=== PATIENT | female | born 1935 | race Caucasian/White ===

== ENCOUNTER 2016-06-08 06:52 | Emergency (ER) | payer OTHER, MEDICARE ==
[2016-06-08 07:10] VITALS: BMI 31.1
--- NOTE | 2016-06-08 07:47 | PDOC ---
History of Present Illness - General Chief Complaint: Urinary Problem Stated Complaint: URINARY PROBLEM Time Seen by Provider: 06/08/16 07:25 History Source: Patient Exam Limitations: No Limitations - History of Present Illness Travel History: No Initial Comments: 06/08/16 07:41 80 yo F with significant PMHx NIDDM, HTN, HLD, and arrythmia presents with 3 day history of burining urination. She describes increased frequency, dysuria and foul smell to urine. She has multiple uti's in past and very familiar with symptoms. Denies fevers, chills, nausea , vomiting, or hematuria. Denies CP, MARAVILLA, SOB, abd.pain or CVA. Timing/Duration: reports: getting worse Quality: reports: moderate Aggravating Factors: improves with: Voiding Past History - Travel Traveled outside of the country in the last 30 days: No - Past Medical History Allergies/Adverse Reactions: Allergies Allergy/AdvReac Type Severity Reaction Status Date / Time Sulfa (Sulfonamide Allergy Mild Swelling Verified 06/08/16 07:03 Antibiotics) Penicillins Allergy Verified 06/08/16 08:35 cefuroxime axetil AdvReac Severe Nausea Verified 06/08/16 07:03 [From Ceftin] Home Medications: Ambulatory Orders Levothyroxine [Synthroid -] 100 mcg PO DAILY 09/10/12 Metformin HCl [Glucophage -] 500 mg PO DAILY 09/10/12 Nateglinide [Starlix] 120 mg PO TID 09/10/12 Olmesartan Medoxomil [Benicar -] 20 mg PO DAILY 09/10/12 Rosuvastatin Calcium [Crestor] 10 mg PO HS 09/10/12 Amlodipine Besylate/Benazepril [Lotrel 10-20 mg Capsule] 1 cap PO DAILY Ciprofloxacin [Cipro -] 250 mg PO BID #10 tablet 06/08/16 Nebivolol HCl [Bystolic] 10 mg PO BID 06/08/16 Omeprazole 40 mg PO DAILY 06/08/16 Cardiac Disorders: Yes (ARRYTHMIA) Diabetes: Yes GI Disorders: Yes (GERD) HTN: Yes Hypercholesterolemia: Yes Suicide Attempt (Hx): No Thyroid Disease: Yes (Hypo) - Surgical History Abdominal Surgery: Yes Cholecystectomy: Yes - Immunization History Td Vaccination: Yes Immunization Up to Date: Yes - Psycho/Social/Smoking Cessation Hx Anxiety: No Suicidal Ideation: No Smoking Status: No Smoking History: Never smoked Years of Tobacco Use: 0 Have you smoked in the past 12 months: No Number of Cigarettes Smoked Daily: 0 Cigars Per Day: 0 Hx Alcohol Use: No Drug/Substance Use Hx: No Substance Use Type: None Review of Systems - Review of Systems Able to Perform ROS?: Yes Is the patient limited Italian proficient: No Constitutional: No: Chills, Diaphoresis, Fever, Weakness : Yes: Burning, Dysuria, Frequency. No: Flank Pain All Other Systems: Reviewed and Negative *Physical Exam - Vital Signs Last Vital Signs Temp Pulse Resp BP Pulse Ox 98.3 F 98 H 18 120/90 100 06/08/16 07:06 06/08/16 07:06 06/08/16 07:06 06/08/16 07:06 06/08/16 07:06 - Physical Exam General Appearance: Yes: Appropriately Dressed. No: Apparent Distress HEENT: positive: EOMI, FRANKIE Neck: positive: Supple Respiratory/Chest: positive: Lungs Clear, Normal Breath Sounds. negative: Respiratory Distress, Accessory Muscle Use Cardiovascular: positive: Regular Rhythm, Regular Rate, S1, S2, Murmur (2/6 SONIDO RSB). negative: Edema, JVD Gastrointestinal/Abdominal: positive: Normal Bowel Sounds, Flat, Soft Extremity: positive: Normal Inspection, Normal Range of Motion Integumentary: positive: Normal Color, Dry, Warm. negative: Cyanotic, Erythema , Jaundice Neurologic: positive: statistics manager II-XII NML intact, Fully Oriented, Alert, Normal Mood/ Affect ED Treatment Course - LABORATORY CBC & Chemistry Diagram: 06/08/16 08:06 06/08/16 08:06 Medical Decision Making - Medical Decision Making 06/08/16 07:53 A:80 yo F with significant PMHx NIDDM, HTN, HLD, and arrythmia presents with 3 day history of burining urination. Most likely UTI. P: * CBC, CMP, UA, and UC 06/08/16 09:27 * UA shows UTI will give Cipro(renal dosed) 250mg BID x 5 days * NO sepsis 06/08/16 09:50 * Spoke with Dr. Sykes and his office and informed that cultures were back and UTI sensitive to Ciprofloxacin. *DC/Admit/Observation/Transfer Diagnosis at time of Disposition: UTI (urinary tract infection) Qualifiers: Urinary tract infection type: site unspecified Hematuria presence: without hematuria Qualified Code(s): N39.0 - Urinary tract infection, site not specified - Discharge Dispostion Admit: No - Prescriptions Prescriptions: Ciprofloxacin [Cipro -] 250 mg PO BID #10 tablet - Referrals Referrals: Dinesh Sykes MD [Primary Care Provider] - - Patient Instructions Printed Discharge Instructions: DI for Urinary Tract Infection (UTI) Additional Instructions: Please take Cipro as directed for 5 days. Follow up with PCP in one week. ADA diet. Increase activity as tolerated. If pain worsens or develop fever/ chills please return to ED.
[2016-06-08] MEDS ORDERED: SODIUM CHLORIDE 1,000 ML IV SCH (08:15)
--- NOTE | 2016-06-08 08:17 | PDOC ---
Attending Attestation - Resident Resident Name: Tommie Waters - ED Attending Attestation I have performed the following: I have examined & evaluated the patient, The case was reviewed & discussed with the resident, I agree w/resident's findings & plan - HPI HPI: 06/08/16 08:14 80-year-old female with a past medical history of AODM, hypertension, hyperlipidemia, and GERD She states she gets frequent urinary tract infections, and her most recent UTI was 3 months ago, and she saw Dr. Sykes in the office She states it resolved with Cipro without any difficulty She states that she is ALLERGIC to multiple antibiotics including sulfa, Ceftin , and penicillin She states that she does tolerate Cipro without difficulty Patient states that on she started feeling a little weak, and then on Tuesday she developed dysuria urgency and frequency She denies any fevers or chills, she denies any flank pain She is complaining of some gassy abdominal feeling but has passed her bowels regularly She denies any nausea vomiting or diarrhea She denies any other complaints at this time, and the remainder of the review of systems is negative - Physicial Exam PE: 06/08/16 08:15 Physical exam Last Vital Signs Temp Pulse Resp BP Pulse Ox 98.3 F 98 H 18 120/90 100 06/08/16 07:06 06/08/16 07:06 06/08/16 07:06 06/08/16 07:06 06/08/16 07:06 GENERAL: The patient is awake, alert, and fully oriented, and in no apparent distress. HEAD: Normal with no signs of trauma. EYES: sclera anicteric, conjunctiva are normal. ENT: Moist mucous membranes. NECK: Normal range of motion, supple LUNGS: Breath sounds equal, clear to auscultation bilaterally. No wheezes, and no crackles. HEART: Regular rate and rhythm, normal S1 and S2 without murmur, rub or gallop. ABDOMEN: Soft, nontender, normoactive bowel sounds. No guarding, no rebound. No masses appreciated. No abdominal tenderness, no CVA/flank tenderness EXTREMITIES: Normal range of motion, no edema. No clubbing or cyanosis. No cords, erythema, or tenderness. NEUROLOGICAL: Cranial nerves II through XII grossly intact. Normal speech, normal gait. PSYCH: Normal mood, normal affect. SKIN: Warm, Dry, normal turgor, no rashes or lesions noted. - Medical Decision Making 06/08/16 08:16 80-year-old female, who does get recurrent UTIs, most recently 3 months ago, was treated easily with Cipro Presents with the onset /Tuesday UTI symptoms again, without fevers and chills, without flank pain, and without abdominal pain Patient ambulatory around the emergency department and to the bathroom, and drinking water without difficulty 06/08/16 09:27 Laboratory Results - last 24 hr 06/08/16 06/08/16 06/08/16 08:06 08:06 08:06 WBC 10.1 H D RBC 4.85 Hgb 14.0 Hct 42.1 MCV 86.8 MCHC 33.4 RDW 12.8 Plt Count 224 MPV 8.9 Neutrophils % 73.9 Lymphocytes % 16.2 D Monocytes % 6.5 Eosinophils % 2.2 D Basophils % 1.2 Sodium 141 Potassium 4.5 Chloride 107 Carbon Dioxide 22 Anion Gap 12 BUN 19 H Creatinine 1.1 H Creat Clearance w eGFR 47.67 Random Glucose 145 H Calcium 9.3 Total Bilirubin 0.6 AST 29 D ALT 29 Alkaline Phosphatase 71 Total Protein 7.3 Albumin 3.9 Urine Color Yellow Urine Appearance Slcloudy Urine pH 5.0 Ur Specific [place] 1.025 Urine Protein Negative Urine Glucose (UA) Negative Urine Ketones Negative Urine Blood Negative Urine Nitrite Positive Urine Bilirubin Negative Urine Urobilinogen Negative Ur Leukocyte Esterase 3+ H Urine RBC 3 Urine WBC 91 Ur Epithelial Cells Rare Urine Bacteria Many Urine Mucus Many Simple UTI, eGFR 47, no evidence of sepsis or systemic illness Multiple antibiotic ALLERGIES She states that her last UTI was treated effectively with Cipro will give Cipro 250 twice a day, and have her follow-up with her primary care physician will give first dose here IV-200 mg 06/08/16 09:50 * Spoke with Dr. Sykes and his office and informed that cultures were back from the other day,and UTI organism sensitive to Ciprofloxacin.
[2016-06-08 08:32] LABS: BASOPHIL 1.2 % (0-2.0); EOSINOPHIL 2.2 % (0-4.5); MCHC 33.4 g/dl (32.0-36.0); MEAN CELL VOLUME 86.8 fl (80-96); MEAN PLT VOLUME 8.9 fl (7.5-11.1); NEUTROPHILS 73.9 % (42.8-82.8); PLATELET COUNT 224 K/MM3 (134-434); RDW 12.8 % (11.6-15.6); WHITE BLOOD COUNT 10.1 K/mm3 (4.0-10.0)
[2016-06-08 08:55] LABS: URINE APPEARANCE SLCLOUDY; URINE BILIRUBIN NEGATIVE (NEGATIVE); URINE BLOOD NEGATIVE (NEGATIVE); URINE COLOR YELLOW; URINE GLUCOSE (UA) NEGATIVE (NEGATIVE); URINE KETONE NEGATIVE (NEGATIVE); URINE NITRITE POSITIVE (NEGATIVE); URINE PROTEIN NEGATIVE (NEGATIVE); URINE UROBILINOGEN NEGATIVE E.U./dl (0.2-1.0)
[2016-06-08 09:01] LABS: ALBUMIN 3.9 g/dl (3.4-5.0); CALCIUM 9.3 mg/dL (8.5-10.1); URINE LEUK ESTERASE 3+ (NEGATIVE)
[2016-06-08 09:03] LABS: URINE BACTERIA MANY /hpf (NONE SEEN); URINE MUCUS MANY; URINE RBC 3 /hpf (0-3); URINE WBC 91 /hpf (3-5)
[2016-06-08 09:04] LABS: BILIRUBIN,TOTAL 0.6 mg/dL (0.2-1.0); COCKROFT - GAULT 44.2255; CREATININE 1.1 mg/dL (0.55-1.02); TOT PROT 7.3 g/dl (6.4-8.2)
[2016-06-08] MEDS ORDERED: CIPROFLOXACIN 200 MG/D5W 100 ML IVPB ONE (09:38)
[2016-06-08 11:00] VITALS: BP 136/82; PULSE 75; TEMP 98.4
== END 2016-06-08 11:06 | disposition home or self-care (01) ==
LOC: JER 06:52
DX: N39.0 Urinary tract infection, site not specified (principal); I10 Essential (primary) hypertension; E11.9 Type 2 diabetes mellitus without complications; Z79.84 Long term (current) use of oral hypoglycemic drugs; E78.5 Hyperlipidemia, unspecified; E03.9 Hypothyroidism, unspecified
CPT/HCPCS: 36415; 80053; 81003; 81015; 85025; 87086; 87186; 96365; 99284-25

== ENCOUNTER 2016-07-05 19:36 | Emergency (ER) | payer OTHER, MEDICARE ==
[2016-07-05 19:42] VITALS: BP 147/75; PULSE 94; TEMP 98.2; BMI 31.8
[2016-07-05] MEDS ORDERED: ALBUTEROL SO4 2.5/IPRATROPIUM 0.5 INH SOL 3 ML VIAL.NEB. NEB STA (20:48)
--- NOTE | 2016-07-05 20:48 | PDOC ---
History of Present Illness - General History Source: Patient Exam Limitations: No Limitations - History of Present Illness Initial Comments: 07/05/16 20:57 The patient is a 80 year old female with significant past medical history of hypertension, hyperlipidemia, arrhythmia, diabetes, GERD, and hypothyroidism who presents to the ED for 1 day of dry cough and chest tightness. Patient reports she developed a sore throat 2 nights ago, when she decided to go to [facility] yesterday, where she had a throat culture done that was negative. Patient was told that she had a viral illness. She presents today with a dry cough and chest tightness that she developed less than 24 hours ago. Denies chest pain, palpitations or SOB. She also has complaints of generalized malaise. No sick contacts or recent travels. The patient denies fever, chills, diaphoresis, abdominal pain, nausea, vomiting , and diarrhea. Allergies: sulfa, cefuroxime axetil, penicillin Social History: No alcohol, tobacco, or drug use reported Past Surgical History: Cholecystectomy PCP: Dr. Dinesh Sykes <Sarah Forbes - Last Filed: 07/05/16 20:57> - General History Source: Patient <EddraJose - Last Filed: 07/05/16 22:09> - General Chief Complaint: Respiratory Stated Complaint: COLD SYMPTOMS Time Seen by Provider: 07/05/16 20:48 Past History <Sarah Forbes - Last Filed: 07/05/16 20:57> - Past Medical History Cardiac Disorders: Yes (ARRYTHMIA) Diabetes: Yes GI Disorders: Yes (GERD) HTN: Yes Hypercholesterolemia: Yes Suicide Attempt (Hx): No Thyroid Disease: Yes (Hypo) - Surgical History Abdominal Surgery: Yes Cholecystectomy: Yes - Immunization History Td Vaccination: Yes Immunization Up to Date: Yes - Psycho/Social/Smoking Cessation Hx Anxiety: No Suicidal Ideation: No Smoking Status: No Smoking History: Never smoked Years of Tobacco Use: 0 Have you smoked in the past 12 months: No Number of Cigarettes Smoked Daily: 0 Cigars Per Day: 0 Hx Alcohol Use: No Drug/Substance Use Hx: No Substance Use Type: None <Jose Gil - Last Filed: 07/05/16 22:09> - Past Medical History Allergies/Adverse Reactions: Allergies Allergy/AdvReac Type Severity Reaction Status Date / Time Sulfa (Sulfonamide Allergy Mild Swelling Verified 07/05/16 19:38 Antibiotics) Penicillins Allergy Verified 07/05/16 19:38 cefuroxime axetil AdvReac Severe Nausea Verified 07/05/16 19:38 [From Ceftin] Home Medications: Ambulatory Orders Levothyroxine [Synthroid -] 100 mcg PO DAILY 09/10/12 Metformin HCl [Glucophage -] 500 mg PO DAILY 09/10/12 Nateglinide [Starlix] 120 mg PO TID 09/10/12 Olmesartan Medoxomil [Benicar -] 20 mg PO DAILY 09/10/12 Rosuvastatin Calcium [Crestor] 10 mg PO HS 09/10/12 Amlodipine Besylate/Benazepril [Lotrel 10-20 mg Capsule] 1 cap PO DAILY Nebivolol HCl [Bystolic] 10 mg PO BID 06/08/16 Omeprazole 40 mg PO DAILY 06/08/16 Albuterol Sulfate Inhaler - [Ventolin HFA Inhaler -] 2 inh IH Q6H #1 inh Review of Systems - Review of Systems Able to Perform ROS?: Yes Comments:: 07/05/16 20:57 CONSTITUTIONAL: +generalized malaise Absent: fever, no chills, no fatigue EYES: Absent: visual changes ENT: +sore throat Absent: ear pain CARDIOVASCULAR: Absent: chest pain, no palpitations RESPIRATORY: +dry cough, chest tightness Absent: no SOB GI: Absent: abdominal pain, no nausea, no vomiting, no constipation, no diarrhea GENITOURINARY: Absent: dysuria, no frequency, no hematuria MUSCULOSKELETAL: Absent: back pain, no arthralgia, no myalgia SKIN: Absent: rash NEURO: Absent: headache <Bharrat,Sarah - Last Filed: 07/05/16 20:57> *Physical Exam - Vital Signs Last Vital Signs Temp Pulse Resp BP Pulse Ox 98.2 F 94 H 18 147/75 97 07/05/16 19:38 07/05/16 19:38 07/05/16 19:38 07/05/16 19:38 07/05/16 19:38 - Physical Exam Comments: 07/05/16 20:57 GENERAL: Well-appearing, well-nourished. No apparent distress. HEENT: Normocephalic, atraumatic. PERRL, EOM intact. Oropharynx is clear. CARDIOVASCULAR: Normal S1, S2. Regular rate and rhythm. PULMONARY: No respiratory distress. Diminished breath sounds bilaterally. No wheezing, rales, or rhonchi. No conversational dyspnea. No retractions. ABDOMEN: Soft, non-distended, non-tender. EXTREMITIES: Normal ROM in all four extremities. No gross deformities. SKIN: Warm, dry. No rash NEUROLOGICAL: No focal neurological deficits. <Sarah Forbes - Last Filed: 07/05/16 20:57> - Vital Signs Last Vital Signs Temp Pulse Resp BP Pulse Ox 98.2 F 94 H 18 147/75 97 07/05/16 19:38 07/05/16 19:38 07/05/16 19:38 07/05/16 19:38 07/05/16 19:38 <Jose Gil - Last Filed: 07/05/16 22:09> Medical Decision Making - Medical Decision Making 07/05/16 22:08 Dr. Gil: The scribe's documentation has been prepared under my direction and personally reviewed by me in its entirery. I confirm that the note above accurately reflects all work, treatment, procedures, and medical decision making performed by me. Patient feels better after DuoNeb. chest x-ray shows no infiltrate. Patient to follow-up with her primary care doc. Albuterol inhaler written <Jose Gil - Last Filed: 07/05/16 22:09> *DC/Admit/Observation/Transfer - Attestations Scribe Attestion: 07/05/16 20:58 Documentation prepared by Sarah Forbes, acting as medical social consultant for Jose Gil MD/DO. <Sarah Forbes - Last Filed: 07/05/16 20:57> - Discharge Dispostion Admit: No <Jose Gil - Last Filed: 07/05/16 22:09> Diagnosis at time of Disposition: Bronchospasm, Cough - Discharge Dispostion Disposition: HOME Condition at time of disposition: Stable - Referrals Referrals: Dinesh Sykes MD [Primary Care Provider] - - Patient Instructions Printed Discharge Instructions: DI for Cough -- Adult Additional Instructions: Purchase Claritin over the counter and use one tab daily, until your symptoms resolve. Follow up with with Dr. Sykes if things don't improve.
[2016-07-05] MEDS ORDERED: ALBUTEROL SO4 2.5/IPRATROPIUM 0.5 INH SOL 3 ML VIAL.NEB. NEB ONE ×2 (21:03→21:12)
== END 2016-07-05 22:14 | disposition home or self-care (01) ==
LOC: JER 19:36
PROC: 3E0F7GC Introduction of Other Therapeutic Substance into Respiratory Tract, Via Natural or Artificial Opening (ICD-10-PCS; principal; 2016-07-05)
DX: J98.01 Acute bronchospasm (principal); R05 Cough; I10 Essential (primary) hypertension; E78.00 Pure hypercholesterolemia, unspecified; E03.9 Hypothyroidism, unspecified; K21.9 Gastro-esophageal reflux disease without esophagitis; E11.9 Type 2 diabetes mellitus without complications; I49.9 Cardiac arrhythmia, unspecified
CPT/HCPCS: 71020-TC; 99281-25

== ENCOUNTER 2016-07-06 04:04 | Emergency (ER) | payer OTHER, MEDICARE ==
[2016-07-06] MEDS ORDERED: SODIUM CHLORIDE 1,000 ML IV STA (04:26)
--- NOTE | 2016-07-06 04:26 | PDOC ---
History of Present Illness - General History Source: Patient Exam Limitations: No Limitations - History of Present Illness Initial Comments: 07/06/16 04:34 The patient is a 80 year old female with significant past medical history of hypertension, hyperlipidemia, arrhythmia, diabetes, GERD, and hypothyroidism who presents to the ED for generalized weakness. Patient was seen earlier in the ER for coughing, sore throat, and chest tightness. She was treated and discharged. Patient returns for worsening symptoms. States she felt weak when she went to use the bathroom. She noted to have a low grade temp at home. Took tylenol with minimal improvement. She also has complaints of sore throat. States her chest tightness has improved and her cough appears to have improved. Patient reports h/o of UTIs. She currently does not have any urinary complaints. The patient denies chills, diaphoresis, SOB, chest pain, and palpitations. The patient denies abdominal pain, nausea, vomiting, and diarrhea. The patient denies dysuria, hematuria, urgency, and frequency. Allergies: sulfa, cefuroxime axetil, penicillin Social History: No alcohol, tobacco, or drug use reported Past Surgical History: Cholecystectomy PCP: Dr. Dinesh Sykes <Sarah Forbes - Last Filed: 07/06/16 04:34> - General History Source: Patient <Jose Gil - Last Filed: 07/06/16 06:52> - General Stated Complaint: REVISIT-COLD SYMPTOMS, WEAKNESS Time Seen by Provider: 07/06/16 04:23 Past History <Sarah Forbes - Last Filed: 07/06/16 04:34> - Past Medical History Cardiac Disorders: Yes (ARRYTHMIA) Diabetes: Yes GI Disorders: Yes (GERD) HTN: Yes Hypercholesterolemia: Yes Suicide Attempt (Hx): No Thyroid Disease: Yes (Hypo) - Surgical History Abdominal Surgery: Yes Cholecystectomy: Yes - Immunization History Td Vaccination: Yes Immunization Up to Date: Yes - Psycho/Social/Smoking Cessation Hx Anxiety: No Suicidal Ideation: No Smoking Status: No Smoking History: Never smoked Years of Tobacco Use: 0 Have you smoked in the past 12 months: No Number of Cigarettes Smoked Daily: 0 Cigars Per Day: 0 Hx Alcohol Use: No Drug/Substance Use Hx: No Substance Use Type: None <Jose Gil - Last Filed: 07/06/16 06:52> - Past Medical History Allergies/Adverse Reactions: Allergies Allergy/AdvReac Type Severity Reaction Status Date / Time Sulfa (Sulfonamide Allergy Mild Swelling Verified 07/06/16 04:46 Antibiotics) Penicillins Allergy Verified 07/06/16 04:46 cefuroxime axetil AdvReac Severe Nausea Verified 07/06/16 04:46 [From Ceftin] Home Medications: Ambulatory Orders Levothyroxine [Synthroid -] 100 mcg PO DAILY 09/10/12 Metformin HCl [Glucophage -] 500 mg PO DAILY 09/10/12 Nateglinide [Starlix] 120 mg PO TID 09/10/12 Olmesartan Medoxomil [Benicar -] 20 mg PO DAILY 09/10/12 Rosuvastatin Calcium [Crestor] 10 mg PO HS 09/10/12 Amlodipine Besylate/Benazepril [Lotrel 10-20 mg Capsule] 1 cap PO DAILY Nebivolol HCl [Bystolic] 10 mg PO BID 06/08/16 Omeprazole 40 mg PO DAILY 06/08/16 Albuterol Sulfate Inhaler - [Ventolin HFA Inhaler -] 2 inh IH Q6H #1 inh Acetaminophen [Tylenol -] 1,000 mg PO Q6H 07/06/16 Levofloxacin [Levaquin -] 500 mg PO DAILY #7 tablet 07/06/16 Review of Systems - Review of Systems Able to Perform ROS?: Yes Comments:: 07/06/16 04:34 CONSTITUTIONAL: +fever, generalized weakness Absent: no chills, no fatigue EYES: Absent: visual changes ENT: +sore throat Absent: ear pain CARDIOVASCULAR: Absent: chest pain, no palpitations RESPIRATORY: Absent: cough, no SOB GI: Absent: abdominal pain, no nausea, no vomiting, no constipation, no diarrhea GENITOURINARY: Absent: dysuria, no frequency, no hematuria MUSCULOSKELETAL: Absent: back pain, no arthralgia, no myalgia SKIN: Absent: rash NEURO: Absent: headache <ZahraarrJim syta - Last Filed: 07/06/16 04:34> *Physical Exam - Physical Exam Comments: 07/06/16 04:34 GENERAL: Well-appearing, well-nourished. No apparent distress. HEENT: Normocephalic, atraumatic. PERRL, EOM intact. CARDIOVASCULAR: Normal S1, S2. Regular rate and rhythm. PULMONARY: Clear to auscultation bilaterally. ABDOMEN: Soft, non-distended, non-tender. EXTREMITIES: Normal ROM in all four extremities. No gross deformities. SKIN: Warm, dry. No rash NEUROLOGICAL: No focal neurological deficits. <Sarah Forbes - Last Filed: 07/06/16 04:34> ED Treatment Course - LABORATORY CBC & Chemistry Diagram: 07/06/16 05:00 07/06/16 05:00 <Jose Gil - Last Filed: 07/06/16 06:52> *DC/Admit/Observation/Transfer - Attestations Scribe Attestion: 07/06/16 04:35 Documentation prepared by Sarah Forbes, acting as medical coder for Jose Gil MD/. <Sarah Forbes - Last Filed: 07/06/16 04:34> - Discharge Dispostion Admit: No <Jose Gil - Last Filed: 07/06/16 06:52> Diagnosis at time of Disposition: UTI (urinary tract infection) - Discharge Dispostion Disposition: HOME Condition at time of disposition: Stable - Prescriptions Prescriptions: Levofloxacin [Levaquin -] 500 mg PO DAILY #7 tablet - Referrals Referrals: Dinesh Sykes MD [Primary Care Provider] - - Patient Instructions Printed Discharge Instructions: DI for Urinary Tract Infection (UTI)
[2016-07-06 04:45] VITALS: BMI 32.1
[2016-07-06 05:13] LABS: BASOPHIL 1.1 % (0-2.0); EOSINOPHIL 3.7 % (0-4.5); MCH 28.8 pg (25.7-33.7); MCHC 33.6 g/dl (32.0-36.0); MEAN CELL VOLUME 85.6 fl (80-96); MEAN PLT VOLUME 8.7 fl (7.5-11.1); NEUTROPHILS 73.7 % (42.8-82.8); PLATELET COUNT 194 K/MM3 (134-434); WHITE BLOOD COUNT 8.3 K/mm3 (4.0-10.0)
[2016-07-06 05:29] LABS: INR 1.17 (0.82-1.09); PROTHROMBIN TIME (PATIENT) 12.9 SEC (9.98-11.88)
[2016-07-06] MEDS ORDERED: ALBUTEROL SO4 2.5/IPRATROPIUM 0.5 INH SOL 3 ML VIAL.NEB. NEB STA (05:36)
[2016-07-06 05:37] LABS: ALBUMIN 3.7 g/dl (3.4-5.0); BILIRUBIN,TOTAL 0.5 mg/dL (0.2-1.0); CALCIUM 8.9 mg/dL (8.5-10.1); COCKROFT - GAULT 45.662; CREATININE 1.1 mg/dL (0.55-1.02); TOT PROT 6.8 g/dl (6.4-8.2)
[2016-07-06 06:40] LABS: URINE APPEARANCE CLEAR; URINE BILIRUBIN NEGATIVE (NEGATIVE); URINE BLOOD NEGATIVE (NEGATIVE); URINE COLOR LTYELLOW; URINE GLUCOSE (UA) NEGATIVE (NEGATIVE); URINE KETONE NEGATIVE (NEGATIVE); URINE NITRITE POSITIVE (NEGATIVE); URINE PROTEIN NEGATIVE (NEGATIVE); URINE UROBILINOGEN NEGATIVE E.U./dl (0.2-1.0)
[2016-07-06 06:47] LABS: URINE LEUK ESTERASE TRACE (NEGATIVE)
[2016-07-06] MEDS ORDERED: LEVOFLOXACIN 500 MG TABLET (FP) PO ONE (06:50)
[2016-07-06 06:53] LABS: URINE BACTERIA RARE /hpf (NONE SEEN); URINE HYALINE CAST 4 /lpf; URINE MUCUS RARE; URINE WBC 3 /hpf (3-5)
[2016-07-06] MEDS ORDERED: LEVOFLOXACIN 500 MG TABLET (FP) ONE (07:01)
[2016-07-06 07:07] VITALS: BP 150/84; PULSE 94; TEMP 98.8
== END 2016-07-06 07:08 | disposition home or self-care (01) ==
LOC: JER 04:04
PROC: 3E0F7GC Introduction of Other Therapeutic Substance into Respiratory Tract, Via Natural or Artificial Opening (ICD-10-PCS; principal; 2016-07-06)
PROC: 3E0337Z Introduction of Electrolytic and Water Balance Substance into Peripheral Vein, Percutaneous Approach (ICD-10-PCS; 2016-07-06)
DX: N39.0 Urinary tract infection, site not specified (principal); E11.9 Type 2 diabetes mellitus without complications; E03.9 Hypothyroidism, unspecified; K21.9 Gastro-esophageal reflux disease without esophagitis; I49.9 Cardiac arrhythmia, unspecified; E78.00 Pure hypercholesterolemia, unspecified; I10 Essential (primary) hypertension
CPT/HCPCS: 36415; 80053; 81003; 81015; 85025; 85610; 87040; 87086; 87186; 94640; 96360; 99282-25

== ENCOUNTER 2017-06-07 06:18 | Emergency (ER) | payer OTHER, MEDICARE ==
[2017-06-07 06:37] VITALS: BP 168/79; PULSE 74; TEMP 99.4; BMI 33.9
[2017-06-07 07:08] LABS: URINE APPEARANCE CLOUDY; URINE BILIRUBIN NEGATIVE (<2.0 mg/dL); URINE BLOOD 2+ (NEGATIVE); URINE COLOR YELLOW; URINE GLUCOSE (UA) NEGATIVE (NEGATIVE); URINE KETONE NEGATIVE (NEGATIVE); URINE NITRITE POSITIVE (NEGATIVE); URINE UROBILINOGEN NEGATIVE mg/dL (0.2-1.0)
[2017-06-07 07:19] LABS: URINE LEUK ESTERASE 3+ (NEGATIVE); URINE PROTEIN 1+ (NEGATIVE)
[2017-06-07 07:21] LABS: EPI CELLS RARE /HPF (FEW); URINE BACTERIA MANY /hpf (NONE SEEN); URINE MUCUS RARE; YEAST MANY
[2017-06-07] MEDS ORDERED: ACETAMINOPHEN 500 MG TABLET (FP) PO ONE (07:48)
[2017-06-07] MEDS ORDERED: FLUCONAZOLE 50 MG TABLET PO ONE (07:50)
--- NOTE | 2017-06-07 07:51 | PDOC ---
History of Present Illness <Laurent Dalton - Last Filed: 06/07/17 08:16> - General History Source: Patient Exam Limitations: No Limitations - History of Present Illness Initial Comments: 06/07/17 08:39 The patient is an 81 year old female with past medical history of hypertension, NIDDM, and recurrent UTI who presents to the ED with 1 month of dysuria. The patient complains of a burning pressure every time she urinates as well as a suprapubic pain that radiates to her sacrum. She states her symptoms are typical of her past UTIs. Yesterday she began to experience chills and has felt more lethargic the past few days. She denies any nausea, vomiting, diarrhea, cough, SOB, frequency, urgency, or hematuria. Allergies: Sulfa Surgeries: Cholecystectomy, hemorrhoid surgery PCP: Dr. Sykes <Teresita Ugalde - Last Filed: 06/07/17 08:40> - General Chief Complaint: Urinary Problem Stated Complaint: URINARY PROBLEM Time Seen by Provider: 06/07/17 07:02 Past History - Past Medical History Cardiac Disorders: Yes (ARRYTHMIA) Diabetes: Yes GI Disorders: Yes (GERD) HTN: Yes Hypercholesterolemia: Yes Thyroid Disease: Yes (Hypo) - Surgical History Abdominal Surgery: Yes Cholecystectomy: Yes - Immunization History Td Vaccination: Yes Immunization Up to Date: Yes - Suicide/Smoking/Psychosocial Hx Smoking Status: No Smoking History: Never smoked Years of Tobacco Use: 0 Have you smoked in the past 12 months: No Number of Cigarettes Smoked Daily: 0 Cigars Per Day: 0 Information on smoking cessation initiated: No Hx Alcohol Use: No Drug/Substance Use Hx: No Substance Use Type: None <Laurent Dalton - Last Filed: 06/07/17 08:16> <Teresita Ugalde - Last Filed: 06/07/17 08:40> - Past Medical History Allergies/Adverse Reactions: Allergies Allergy/AdvReac Type Severity Reaction Status Date / Time Sulfa (Sulfonamide Allergy Mild Swelling Verified 06/07/17 06:36 Antibiotics) Penicillins Allergy Verified 06/07/17 06:36 cefuroxime axetil AdvReac Severe Nausea Verified 06/07/17 06:36 [From Ceftin] Home Medications: Ambulatory Orders Levothyroxine [Synthroid -] 100 mcg PO DAILY 09/10/12 Nateglinide [Starlix] 120 mg PO TID 09/10/12 Olmesartan Medoxomil [Benicar -] 20 mg PO DAILY 09/10/12 Rosuvastatin Calcium [Crestor] 10 mg PO HS 09/10/12 metFORMIN HCL [Glucophage -] 500 mg PO DAILY 09/10/12 Amlodipine Besylate/Benazepril [Lotrel 10-20 mg Capsule] 1 cap PO DAILY Nebivolol HCl [Bystolic] 10 mg PO BID 06/08/16 Omeprazole 40 mg PO DAILY 06/08/16 Albuterol Sulfate Inhaler - [Ventolin HFA Inhaler -] 2 inh IH Q6H #1 inh Acetaminophen [Tylenol .Extra-Strength -] 1,000 mg PO Q6H 07/06/16 levoFLOXacin [Levaquin -] 500 mg PO DAILY #7 tablet 07/06/16 Nitrofurantoin Macrocrystal [Macrodantin -] 100 mg PO BID #14 capsule 06/07/17 Review of Systems - Review of Systems Constitutional: No: Chills, Fever Respiratory: No: Cough, Shortness of Breath Cardiac (ROS): No: Chest Pain : Yes: Burning, Dysuria, Frequency. No: Flank Pain, Hematuria All Other Systems: Reviewed and Negative <Laurent Dalton - Last Filed: 06/07/17 08:16> *Physical Exam - Vital Signs Last Vital Signs Temp Pulse Resp BP Pulse Ox 99.4 F 74 18 168/79 98 06/07/17 06:36 06/07/17 06:36 06/07/17 06:36 06/07/17 06:36 06/07/17 06:36 <Laurent Dalton - Last Filed: 06/07/17 08:16> - Vital Signs Last Vital Signs Temp Pulse Resp BP Pulse Ox 99.4 F 74 18 168/79 98 06/07/17 06:36 06/07/17 06:36 06/07/17 06:36 06/07/17 06:36 06/07/17 06:36 - Physical Exam Comments: 06/07/17 08:40 GENERAL: The patient is awake, alert, and fully oriented, in no acute distress. HEAD: Normal with no signs of trauma. EYES: Pupils equal, round and reactive to light, extraocular movements intact, sclera anicteric, conjunctiva clear with no pallor. ENT: Ears normal, nares patent, oropharynx clear without exudates. Moist mucous membranes. NECK: Normal range of motion, supple without lymphadenopathy, JVD, or masses. LUNGS: Breath sounds equal, clear to auscultation bilaterally. No wheeze/ crackles. HEART: Regular rate and rhythm, normal S1 and S2 without murmur or rub. ABDOMEN: Soft/nontender/nondistended. BS wnl. No guarding or rebound. No palpable masses. No hepatosplenomegaly. EXTREMITIES: Normal range of motion, no edema. No clubbing or cyanosis. No cords, erythema, or tenderness. NEUROLOGICAL: Cranial nerves II through XII grossly intact. Normal speech, normal gait. PSYCH: Normal mood, normal affect. SKIN: Warm, Dry, normal turgor, no rashes or lesions noted. <Teresita Ugalde - Last Filed: 06/07/17 08:40> ED Treatment Course - ADDITIONAL ORDERS Additional order review: Laboratory Results 06/07/17 06:42 Urine Color Yellow Urine Appearance Cloudy Urine pH 6.0 Ur Specific [place] 1.015 Urine Protein 1+ H Urine Glucose (UA) Negative Urine Ketones Negative Urine Blood 2+ H Urine Nitrite Positive Urine Bilirubin Negative Urine Urobilinogen Negative Ur Leukocyte Esterase 3+ H D Urine WBC (Auto) 451 Urine RBC (Auto) 75 Ur Epithelial Cells Rare Urine Bacteria Many Urine Mucus Rare Urine Yeast Many <Laurent Dalton - Last Filed: 06/07/17 08:16> - ADDITIONAL ORDERS Additional order review: Laboratory Results 06/07/17 06:42 Urine Color Yellow Urine Appearance Cloudy Urine pH 6.0 Ur Specific [place] 1.015 Urine Protein 1+ H Urine Glucose (UA) Negative Urine Ketones Negative Urine Blood 2+ H Urine Nitrite Positive Urine Bilirubin Negative Urine Urobilinogen Negative Ur Leukocyte Esterase 3+ H D Urine WBC (Auto) 451 Urine RBC (Auto) 75 Ur Epithelial Cells Rare Urine Bacteria Many Urine Mucus Rare Urine Yeast Many - Medications Given in the ED: ED Medications Discontinued Medications Generic Name Dose Route Start Last Admin Trade Name Freq PRN Reason Stop Dose Admin Acetaminophen 1,000 mg 06/07/17 07:48 06/07/17 08:15 Tylenol - PO 06/07/17 07:49 1,000 mg ONCE ONE Administration Fluconazole 150 mg 06/07/17 07:50 06/07/17 08:15 Diflucan - PO 06/07/17 07:51 150 mg ONCE ONE Administration <Teresita Ugalde - Last Filed: 06/07/17 08:40> Medical Decision Making - Medical Decision Making 06/07/17 08:24 A portion of this note was documented by scribe services under my direction. I have reviewed the details of the note, within reason, and agree with the documentation with the following case summary and management plan written by me. 81y/o F with h/o frequent UTI p/w 1 month dysuria/frequency and suprapubic discomfort, also with vaginal burning but no bleeding/discharge. identical to past UTI sxs, arranged appt with Dr. Sykes but not scheduled until 1-2 weeks from now. no incontinence/retention, no flank pain. no f/c/n/v. temp 99 very well appearing and high functioning elderly female regular and normal rate abd soft/nt/nd. no cvat. 81y/o F with UTI sxs and no signs/sxs of bacteremia/sepsis or other complication. Also likely superimposed vaginal candidiasis. UA with elevated nitrites/leks/yeast urine cx sent treated with macrobid and diflucan here will f/u with On[facility] - understands return criteria. <Laurent Dalton - Last Filed: 06/07/17 08:16> *DC/Admit/Observation/Transfer <Laurent Dalton - Last Filed: 06/07/17 08:16> - Attestations Scribe Attestion: 06/07/17 08:4 Documentation prepared by Teresita Ugalde, acting as medical office technician for Laurent Dalton MD. <Teresita Ugalde - Last Filed: 06/07/17 08:40> Diagnosis at time of Disposition: Vaginal candidiasis UTI (urinary tract infection) Qualifiers: Urinary tract infection type: acute cystitis Hematuria presence: without hematuria Qualified Code(s): N30.00 - Acute cystitis without hematuria - Discharge Dispostion Disposition: HOME Condition at time of disposition: Stable - Prescriptions Prescriptions: Nitrofurantoin Macrocrystal [Macrodantin -] 100 mg PO BID #14 capsule - Referrals Referrals: Dinesh Sykes MD [Primary Care Provider] - - Patient Instructions Printed Discharge Instructions: DI for Vaginal Yeast Infection, DI for Urinary Tract Infection (UTI) Additional Instructions: Activity as tolerated. Stay hydrated. A urine test shows evidence of a urinary tract infection, as suspected. Take Macrobid as prescribed for one week. You were given a dose of Diflucan in the emergency department to treat a vaginal yeast infection. No further treatment should be necessary. Continue your medications as previously prescribed by your physician. You should follow up with Dr. Sykes as soon as possible regarding today's emergency department visit. Return to the emergency department for any new or concerning symptoms, particularly persistent burning or difficulty urinating, fevers or chills or weakness, abdominal pain. - Post Discharge Activity
[2017-06-07] MEDS ORDERED: NITROFURANTOIN MACROCRYSTAL 50 MG CAPSULE (FP) PO SCH (08:00)
[2017-06-07] MEDS ORDERED: FLUCONAZOLE 100 MG TABLET (UD) ONE (08:06)
[2017-06-07] MEDS ORDERED: ACETAMINOPHEN 325 MG TABLET (FP) ONE (08:06)
[2017-06-07] MEDS ORDERED: NITROFURANTOIN MACROCRYSTAL 50 MG CAPSULE (FP) ONE (08:06)
--- NOTE | 2017-06-09 07:41 | PDOC ---
Patient Follow-up (Call Back) - Post ED Follow - Up Condition at time of discharge: Stable Disposition at time of original discharge: HOME Reason for Call Back: Abnwl. Microbiology (Patient's urine culture preliminary report shows organism 1 with lactose fermenting negative bacilli. Organism 2 with group D strep or enterococcus. Patient currently on Macrobid. We will await final report.)
== END 2017-06-07 08:39 | disposition home or self-care (01) ==
LOC: JER 06:18
DX: N30.00 Acute cystitis without hematuria (principal); B37.3 Candidiasis of vulva and vagina; I10 Essential (primary) hypertension; E11.9 Type 2 diabetes mellitus without complications; Z79.84 Long term (current) use of oral hypoglycemic drugs; E03.9 Hypothyroidism, unspecified; E78.00 Pure hypercholesterolemia, unspecified; K21.9 Gastro-esophageal reflux disease without esophagitis; Z86.79 Personal history of other diseases of the circulatory system
CPT/HCPCS: 81003; 81015; 87086; 87186; 99281-25

== ENCOUNTER 2017-10-29 11:03 | Emergency (ER) | payer OTHER, MEDICARE ==
[2017-10-29 11:17] VITALS: BP 206/89; PULSE 80; TEMP 97; BMI 33.9
--- NOTE | 2017-10-29 11:26 | PDOC ---
History of Present Illness - General Chief Complaint: Injury Stated Complaint: FALL, INJURY Time Seen by Provider: 10/29/17 11:20 - History of Present Illness Initial Comments: 10/29/17 11:25 A 1-year-old female without comorbidities he takes daily aspirin presents for evaluation after mechanical fall. She states she hit her head on the mailbox on her way down she is unsure of her current tetanus status. She has no loss of consciousness, nausea vomiting or headache. No post injury visual changes. She was here because she wanted to be checked. She is unsure of her current tetanus status. Past History - Past Medical History Allergies/Adverse Reactions: Allergies Allergy/AdvReac Type Severity Reaction Status Date / Time Sulfa (Sulfonamide Allergy Mild Swelling Verified 10/29/17 11:18 Antibiotics) Penicillins Allergy Verified 10/29/17 11:18 cefuroxime axetil AdvReac Severe Nausea Verified 10/29/17 11:18 [From Ceftin] Home Medications: Ambulatory Orders Levothyroxine [Synthroid -] 100 mcg PO DAILY 09/10/12 Nateglinide [Starlix] 120 mg PO TID 09/10/12 Olmesartan Medoxomil [Benicar -] 20 mg PO DAILY 09/10/12 Rosuvastatin Calcium [Crestor] 10 mg PO HS 09/10/12 metFORMIN HCL [Glucophage -] 500 mg PO DAILY 09/10/12 Amlodipine Besylate/Benazepril [Lotrel 10-20 mg Capsule] 1 cap PO DAILY Nebivolol HCl [Bystolic] 10 mg PO BID 06/08/16 Omeprazole 40 mg PO DAILY 06/08/16 Albuterol Sulfate Inhaler - [Ventolin HFA Inhaler -] 2 inh IH Q6H #1 inh Acetaminophen [Tylenol .Extra-Strength -] 1,000 mg PO Q6H 07/06/16 levoFLOXacin [Levaquin -] 500 mg PO DAILY #7 tablet 07/06/16 Nitrofurantoin Macrocrystal [Macrodantin -] 100 mg PO BID #14 capsule 06/07/17 Amoxicillin - [Amoxicillin 500mg Capsule -] 500 mg PO BID #14 capsule 06/11/17 Cardiac Disorders: Yes (ARRYTHMIA) COPD: No Diabetes: Yes GI Disorders: Yes (GERD) HTN: Yes Hypercholesterolemia: Yes Thyroid Disease: Yes (Hypo) - Surgical History Abdominal Surgery: Yes (HEMMROIDS) Cholecystectomy: Yes - Immunization History Td Vaccination: Yes Immunization Up to Date: Yes - Suicide/Smoking/Psychosocial Hx Smoking Status: No Smoking History: Never smoked Years of Tobacco Use: 0 Have you smoked in the past 12 months: No Number of Cigarettes Smoked Daily: 0 Cigars Per Day: 0 Hx Alcohol Use: No Drug/Substance Use Hx: No Substance Use Type: None Review of Systems - Review of Systems All Other Systems: Reviewed and Negative *Physical Exam - Vital Signs Last Vital Signs Temp Pulse Resp BP Pulse Ox 97 F L 80 18 206/89 97 10/29/17 11:13 10/29/17 11:13 10/29/17 11:13 10/29/17 11:13 10/29/17 11:13 - Physical Exam Comments: 10/29/17 12:27 HEAD: NC/AT EYES: Conjuntiva clear, PERRL, EOMI Ears: Canals and TM's normal NOSE: No d/c THROAT: Moist mucous membrances, oral pharanx clear, uvula midline NECK: Supple without adenopathy CARDIAC: S1 S2 LUNGS: CTA Full and Equal breath sounds ABDOMEN: Soft NT ND MS: Full ROM in all joints without edema NEUROLOGIC: No gross sensory or motor deficits, NVID, Negative [place] SKIN: Normal color and temperature no lesions or rashes ED Treatment Course - RADIOLOGY Radiology Studies Ordered: Category Date Time Status HEAD CT WITHOUT CONTRAST [CT] Stat CT Scan 10/29/17 11:20 Ordered Medical Decision Making - Medical Decision Making Tetanus is up-to-date his were reviewed 10/29/17 11:28 10/29/17 12:28 Negative CAT scan no symptoms and this closed head injury. Follow-up with her primary care physician *DC/Admit/Observation/Transfer Diagnosis at time of Disposition: Closed head injury - Discharge Dispostion Disposition: HOME Condition at time of disposition: Stable Decision to Admit order: No - Referrals - Patient Instructions Printed Discharge Instructions: DI for Closed Head Injury Additional Instructions: Follow-up with your primary care physician in one to 2 days return to the emergency room should he develop any headache nausea vomiting visual changes or any other symptoms. - Post Discharge Activity
== END 2017-10-29 12:32 | disposition home or self-care (01) ==
LOC: JERFT 11:03
DX: S09.8XXA Other specified injuries of head, initial encounter (principal); W01.198A Fall on same level from slipping, tripping and stumbling with subsequent striking against other object, initial encounter; Y93.89 Activity, other specified; Y92.018 Other place in single-family (private) house as the place of occurrence of the external cause; Z79.82 Long term (current) use of aspirin; I10 Essential (primary) hypertension; E11.9 Type 2 diabetes mellitus without complications; Z79.84 Long term (current) use of oral hypoglycemic drugs; E78.00 Pure hypercholesterolemia, unspecified; E03.9 Hypothyroidism, unspecified; Z88.0 Allergy status to penicillin; Z88.2 Allergy status to sulfonamides
CPT/HCPCS: 70450-TC; 99281-25

== ENCOUNTER 2017-12-30 21:19 | Emergency (ER) | payer OTHER, MEDICARE ==
[2017-12-30] MEDS ORDERED: diphenhydrAMINE HCL 25 MG CAPSULE (FP) PO ONE ×2 (21:21→21:57)
[2017-12-30 21:23] VITALS: TEMP 98.2; BMI 33.9
--- NOTE | 2017-12-30 21:28 | PDOC ---
Rapid Medical Evaluation Chief Complaint: Bite Time Seen by Provider: 12/30/17 21:20 Medical Evaluation: Allergies Allergy/AdvReac Type Severity Reaction Status Date / Time Sulfa (Sulfonamide Allergy Mild Swelling Verified 10/29/17 11:18 Antibiotics) Penicillins Allergy Verified 10/29/17 11:18 cefuroxime axetil AdvReac Severe Nausea Verified 10/29/17 11:18 [From Ceftin] 12/30/17 21:21 82 year old female s/p bee sting 1/2 hour ago now with hives to body. no thorat swelling or respiratory symptoms. PE; patient alert ox3. hives to arm and abdomen. breath sounds clear. A: allergic reaction P: benadryl PMhx: htn, diabetes Discharge Disposition - Diagnosis Allergic reaction Qualifiers: Encounter type: initial encounter Qualified Code(s): T78.40XA - Allergy, unspecified, initial encounter - Referrals Referrals: Dinesh Sykes MD [Primary Care Provider] - - Patient Instructions - Post Discharge Activity
[2017-12-30] MEDS ORDERED: DEXAMETHASONE 4 MG TABLET (FP) PO ONE (21:42)
--- NOTE | 2017-12-30 21:55 | PDOC ---
History of Present Illness - General Chief Complaint: Allergic Reaction Stated Complaint: Allergic Reaction Time Seen by Provider: 12/30/17 21:20 History Source: Patient Exam Limitations: No Limitations - History of Present Illness Initial Comments: 12/30/17 21:52 Pt is an 82yo f with PMH of HTN, DM, GERD, arrhythmia presenting to ED after a bee sting 1 hour ago. Pt said she was cleaning her carpet when she got stung by a dying bee. She was only stung once before. She said her R index finger (where she was stung or bitten) started swelling then she started to have itching and hives on her arms and abdomen. She denies throat swelling, shortness of breath, chest pain, changes in vision, abdominal pain, n/v/d, finger pain, fevers. She took all of her medications today. PMD: On[facility] PMH: see hpi PSH: Meds: metoprolol, olmesartan, omeprazole, metformin Social: denies Allergies: sulfa, pcn Past History - Past Medical History Allergies/Adverse Reactions: Allergies Allergy/AdvReac Type Severity Reaction Status Date / Time bee pollen Allergy Intermediate Hives Verified 12/31/17 00:44 Sulfa (Sulfonamide Allergy Mild Swelling Verified 12/30/17 21:23 Antibiotics) cefuroxime axetil AdvReac Severe Nausea Verified 12/30/17 21:23 [From Ceftin] Home Medications: Ambulatory Orders Levothyroxine [Synthroid -] 100 mcg PO DAILY 09/10/12 Olmesartan Medoxomil [Benicar -] 20 mg PO DAILY 09/10/12 Rosuvastatin Calcium [Crestor] 10 mg PO HS 09/10/12 metFORMIN HCL [Glucophage -] 500 mg PO BID 09/10/12 Omeprazole 40 mg PO DAILY 06/08/16 Metoprolol Tartrate 100 mg PO DAILY 12/31/17 Olmesartan Medoxomil 40 mg PO DAILY 12/31/17 Cardiac Disorders: Yes (ARRYTHMIA) COPD: No Diabetes: Yes GI Disorders: Yes (GERD) HTN: Yes Hypercholesterolemia: Yes Thyroid Disease: Yes (Hypo) - Surgical History Abdominal Surgery: Yes (HEMMROIDS) Cholecystectomy: Yes - Immunization History Td Vaccination: Yes Immunization Up to Date: Yes - Suicide/Smoking/Psychosocial Hx Smoking Status: No Smoking History: Never smoked Years of Tobacco Use: 0 Have you smoked in the past 12 months: No Number of Cigarettes Smoked Daily: 0 Cigars Per Day: 0 Hx Alcohol Use: No Drug/Substance Use Hx: No Substance Use Type: None Review of Systems - Review of Systems Constitutional: No: Chills, Fever, Weakness HEENTM: No: Eye Pain, Blurred Vision, Ear Pain, Throat Pain, Throat Swelling, Difficulty Swallowing Respiratory: No: Cough, Orthopnea, Shortness of Breath, Stridor Cardiac (ROS): No: Chest Pain, Lightheadedness, Palpitations, Syncope ABD/GI: No: Constipated, Diarrhea, Nausea, Vomiting, Abdominal cramping : No: Burning, Dysuria, Frequency Musculoskeletal: No: Back Pain, Joint Pain, Neck Pain Integumentary: Yes: See HPI, Erythema, Pruritus, Rash. No: Bruising Neurological: No: Headache, Numbness, Paresthesia, Tingling, Tremors *Physical Exam - Vital Signs Last Vital Signs Temp Pulse Resp BP Pulse Ox 98.2 F 114 H 18 253/99 H 97 12/30/17 21:20 12/30/17 21:20 12/30/17 21:20 12/30/17 21:20 12/30/17 21:20 - Physical Exam General Appearance: Yes: Nourished, Appropriately Dressed. No: Apparent Distress HEENT: positive: EOMI, FRANKIE, TMs Normal, Pharynx Normal. negative: Pharyngeal Erythema, Tonsillar Exudate, Tonsillar Erythema Neck: positive: Trachea midline, Supple. negative: Lymphadenopathy (R), Lymphadenopathy (L) Respiratory/Chest: positive: Lungs Clear, Normal Breath Sounds. negative: Crackles, Rhonchi, Stridor, Wheezing Cardiovascular: positive: Regular Rhythm, Regular Rate, S1, S2. negative: Edema , JVD, Murmur Vascular Pulses: Carotid (R): 2+, Carotid (L): 2+, Dorsalis-Pedis (R): 2+, Doralis-Pedis (L): 2+ Gastrointestinal/Abdominal: positive: Normal Bowel Sounds, Soft. negative: Distended, Guarding, Rebound, Tenderness Musculoskeletal: negative: CVA Tenderness Extremity: positive: Normal Capillary Refill, Other (swelling and warmth to entirety of R 2nd digit. ttp at tip only. Full ROM. No pain with passive or active ROM). negative: Swelling Integumentary: positive: Normal Color, Dry, Warm, Erythema, Hives, Rash (across ventral aspect of arms bilaterally with hives. non blanching. not puritic. Across abdomen also. ) Neurologic: positive: acct exec II-XII NML intact, Fully Oriented, Alert, Normal Mood/ Affect, Normal Response, Motor Strength 06/18 ED Treatment Course - LABORATORY CBC & Chemistry Diagram: 12/30/17 23:05 12/30/17 23:05 Medical Decision Making - Medical Decision Making Pt is an 82yo f with PMH of HTN, DM, GERD, arrhythmia presenting to ED after a bee sting 1 hour ago. Vitals; hypertensive 200s/100, tachyardia 114, normal O2 saturation, nonlabored respiration PE: R index finger swelling and tip tenderness, no abscesses, erythema and hives over arms and abdomen Ddx: anaphylaxis, hypersensitivity reaction, flexor tenosynovitis hypertensive urgency v. emergency low suspicion for anaphylaxis given pt is hypertensive and does not have other signs of reaction other than skin reaction. Benadryl ordered by triage. Ordered decadron and nitropaste. Percocet added for pain. Labs ordered mainly for hypertension, she is otherwise asymptomatic. EKG ordered 12/30/17 22:32 Pt has not received decadron yet. Has gotten benadryl and nitropaste. BP 170s/90s Urticaria and rash resolved. Finger is still swollen tip tender to palpation and warm pt is able to flex and extend without pain. No pain with passive extension. 12/30/17 23:52 last bp in october was 206/88 BP now 183/96 asymptomatic. Labs wnl. EKG did not show anastasiya or depressions. Pt otherwise stable. Cannot definitevly diagnose tenosynovitis at this time does not have pain with extension, not flexed. pt given strict return precautions regarding tenosynovitis and hypertensive emergency DC home *DC/Admit/Observation/Transfer Diagnosis at time of Disposition: Allergic reaction Qualifiers: Encounter type: initial encounter Qualified Code(s): T78.40XA - Allergy, unspecified, initial encounter Hypertension Qualifiers: Hypertension type: unspecified Qualified Code(s): I10 - Essential (primary) hypertension - Discharge Dispostion Disposition: HOME Condition at time of disposition: Improved - Referrals Referrals: Dinesh Sykes MD [Primary Care Provider] - - Patient Instructions Printed Discharge Instructions: DI for High Blood Pressure Additional Instructions: You were seen here today for evaluation of a bee sting and an allergic reaction from the sting. We gave you medicaitons and the swelling went down. Your blood pressure is high. I recommend making an appointment with Dr. Sykes in the next few days to get your blood pressure under control. Come back to the emergency room if your blood pressure is over 180/100, your finger swelling gets worse, there is pain with movement or touching the finger or if any new concerning symptom develops. Also come back to the emergency room if you develop chest pain, you feel short of breath, you have headaches, you have changes in vision, you have weakness, facial droop, slurred speech, back pain, neck pain. Thank you - Post Discharge Activity
[2017-12-30] MEDS ORDERED: NITROGLYCERIN 2% OINTMENT - 1GM PACKET TD ONE ×2 (22:07→22:09)
--- NOTE | 2017-12-30 22:15 | PDOC ---
Attending Attestation - HPI HPI: 12/30/17 22:25 The patient is an 82-year-old female with past medical history significant for DM, HTN, GERD presents to the emergency department s/p being stung by a yellow jacket. The patient reports she was cleaning her carpet when she was stung by a bee on her R. index finger. The patient presents with swelling and itchiness to the hand, associated with hives bilaterally on the arm. Denies shortness of breath, difficulty swallowing. Allergies: Sulfa Surgeries: Cholecystectomy, hemorrhoid surgery PCP: Dr. Sykes - Physicial Exam PE: 12/30/17 22:25 GENERAL: Awake, alert, and fully oriented, in no acute distress HEAD: No signs of trauma EYES: PERRLA, EOMI, sclera anicteric, conjunctiva clear ENT: Auricles normal inspection, hearing grossly normal, nares patent, oropharynx clear without exudates. Moist mucosa NECK: No hives around around her neck. Normal ROM, supple, no lymphadenopathy, JVD, or masses LUNGS: No difficulty breathing. Breath sounds equal, clear to auscultation bilaterally. No wheezes, and no crackles HEART: +BP elevated bilaterally. Regular rate and rhythm, normal S1 and S2, no murmurs, rubs or gallops ABDOMEN: Soft, nontender. No guarding, no rebound. No masses EXTREMITIES: +right index finger swelling twice as large as the rest of the finger, good cap refill with limited ROM secondary to soft tissue swelling, no redness or cellulitis. Rest of the fingers: Normal range of motion, no edema. No clubbing or cyanosis. No cords, erythema, or tenderness BACK: No midline spinal tenderness in cervical/thoracic/lumbar region NEUROLOGICAL: Normal speech, normal gait, normal reflexes and tone SKIN: + Hives noted beneath the bra line, hives noted bilaterally to the forearms. Warm, Dry, normal turgor, no rashes or lesions noted. - Medical Decision Making 12/30/17 22:27 Documentation prepared by Windy Mitchell, acting as phlebotomist medical lab assistant for Annabelle Bloom MD. <Windy Mitchell - Last Filed: 12/30/17 22:25> - Resident Resident Name: Lissette Carmichael - ED Attending Attestation I have performed the following: I have examined & evaluated the patient, The case was reviewed & discussed with the resident, I agree w/resident's findings & plan - Medical Decision Making 12/30/17 22:15 bp is improved 190 systolic on the right arm and 198 systolic on the left arm. Pt has no wheezing and she has no tongue swelling 12/31/17 00:00 Pt is feeling better and her BP is better. Pt will be given a dose of diovan here (as we do not have olmisartan here) <Annabelle Bloom - Last Filed: 12/31/17 00:11> Heart Score/ECG Review - ECG Intrepretation Rhythm: Regular Rhythm - [place]: Normal - QRS Poor R Wave Progression: No Q Wave Present: No - ST and T Early Repolarization: No Non Specific ST-T Wave changes: No - ECG Impressions Normal ECG: Yes Non-specific ST Elevation: No Ischemic Changes: No Bradycardia: No (HR is 80 bpm) <Annabelle Bloom - Last Filed: 12/31/17 00:11>
[2017-12-30 23:32] LABS: BASO % 0.9 % (0-2.0); HEMATOCRIT 40.6 % (32.4-45.2); HEMOGLOBIN 13.7 GM/dL (10.7-15.3); LYMPH % 17.6 % (8-40); MCH 29.1 pg (25.7-33.7); MCHC 33.8 g/dl (32.0-36.0); MEAN PLT VOLUME 8.4 fl (7.5-11.1); MONO % 7.6 % (3.8-10.2); NEUT % 70.9 % (42.8-82.8); PLATELET COUNT 258 K/MM3 (134-434); RBC 4.72 M/mm3 (3.60-5.2); RDW 12.9 % (11.6-15.6)
[2017-12-30 23:54] LABS: ALBUMIN 3.6 g/dl (3.4-5.0); ALK PHOS 62 U/L (45-117); ANION GAP 10 MMOL/L (8-16); BILIRUBIN,TOTAL 0.5 mg/dL (0.2-1); BLOOD UREA NITROGEN 17 mg/dL (7-18); CHLORIDE 107 mmol/L (98-107); CO2 23 mmol/L (21-32); CREATININE 0.9 mg/dL (0.55-1.3); GLUCOSE,RANDOM 144 mg/dL (74-106); POTASSIUM 3.8 mmol/L (3.5-5.1); SGOT/AST 23 U/L (15-37); SGPT/ALT 23 U/L (13-61); SODIUM 140 mmol/L (136-145); TOT PROT 6.8 g/dl (6.4-8.2)
[2017-12-30] MEDS ORDERED: VALSARTAN 40 MG TABLET (FP) PO ONE (23:56)
[2017-12-31 00:40] VITALS: BP 158/85; PULSE 76
--- NOTE | 2018-01-02 18:33 | EKG ---
Test Reason : Blood Pressure : / mmHG Vent. Rate : 080 BPM Atrial Rate : 080 BPM P-R Int : 220 ms QRS Dur : 076 ms QT Int : 386 ms P-R-T Axes : 038 -19 032 degrees QTc Int : 445 ms SINUS RHYTHM WITH 1ST DEGREE A-V BLOCK OTHERWISE NORMAL ECG WHEN COMPARED WITH ECG OF 30-NOV-2015 21:23, NO SIGNIFICANT CHANGE WAS FOUND Confirmed by DESIREE CERVANTES MD ([id number]) on 01/02/2018 6:33:15 PM Referred By: Confirmed By:DESIREE CERVANTES MD
== END 2017-12-31 00:20 | disposition home or self-care (01) ==
LOC: JER 21:19
DX: T63.441A Toxic effect of venom of bees, accidental (unintentional), initial encounter (principal); L50.0 Allergic urticaria; Y92.018 Other place in single-family (private) house as the place of occurrence of the external cause; Z91.030 Bee allergy status; I10 Essential (primary) hypertension; E11.9 Type 2 diabetes mellitus without complications; Z79.84 Long term (current) use of oral hypoglycemic drugs; E03.9 Hypothyroidism, unspecified; E78.00 Pure hypercholesterolemia, unspecified; I49.9 Cardiac arrhythmia, unspecified
CPT/HCPCS: 36415; 80053; 84484; 85025; 93005; 93010; 99284-25